=== PATIENT | female | born 1975 | race Caucasian/White ===

== ENCOUNTER → 2016-10-18 | Outpatient (CLI) | payer BC ==
[~2016-10-18] MED LIST: OXYC-57 PO
--- NOTE | 2016-10-18 16:06 | MAMMOGRAPHY REPORT ---
BILATERAL DIGITAL SCREENING MAMMOGRAM TOMOSYNTHESIS WITH CAD: 10/18/2016 CLINICAL HISTORY: Routine screening. TECHNIQUE: Breast tomosynthesis in addition to standard 2D mammography was performed. Current study was also evaluated with a Computer Aided Detection (CAD) system. COMPARISON: Comparison is made to exams dated: 01/08/2014 mammogram, 07/21/2011 mammogram, 05/29/2009 m ammogram, 05/27/2009 mammogram - [facility], 05/26/2008, and 05/16/2008. BREAST COMPOSITION: There are scattered areas of fibroglandular density in both breasts. FINDINGS: There is evidence of prior reduction mammoplasty. A large coarse dystrophic calcification is again seen in the anterior subareolar left breast. There are benign appearing round and other sm aller coarse calcifications scattered bilaterally. No new suspicious mass, architectural distortion or cluster of microcalcifications is seen. IMPRESSION: ACR BI-RADS CATEGORY 1: NEGATIVE There is no mammographic evidence of malignancy. A 1 year screening mammogram is recommended. The pa tient will receive written notification of the results. Approximately 10% of breast cancers are not detected with mammography. A negative mammographic report should not delay biopsy if a clinically suggestive mass is present. Shahana Benavides M.D. ay/:10/18/2016 15:19:01 Technician [employer]: Della DEMPSEY(Jessica)(M), [facility] letter sent: Normal 1/2 BI-RADS Code: ACR BI-RADS Category 1: Negative
== END | disposition home or self-care (01) ==
LOC: C.MAMM 13:34
PROVIDERS: ATTEND Obstetrics & Gynecology
DX: Z12.31 Encounter for screening mammogram for malignant neoplasm of breast (principal)

== ENCOUNTER → 2017-02-17 | Outpatient (CLI) | payer BC ==
--- NOTE | 2017-02-17 09:08 | DIAGNOSTIC IMAGING REPORT ---
EXTREMITY NONVASCULAR LIMITED CLINICAL HISTORY: SWELLING/MASS/LUMP IN R UPPER CHEST TECHNIQUE: Ultrasound COMPARISON STUDY: None FINDINGS: Clinical palpable area is and not identified ultrasonically as an independent or a separate soft tissue focus compared to the surrounding normal tissue characteristics. IMPRESSION: 1. No evidence for mass by ultrasound criteria. If The patient remains symptomatic, MRI of the region is suggested. The above report was generated using voice recognition software. It may contain grammatical, syntax or spelling errors. Electronically signed by: Live Dillard M.D. 02/17/2017 9:07 AM Dictated Date/Time: 02/17/2017 9:05 AM
== END | disposition home or self-care (01) ==
LOC: C.ULTR 08:40
PROVIDERS: ATTEND Family Medicine
DX: R22.2 Localized swelling, mass and lump, trunk (principal)